=== PATIENT | male | born 1985 ===

== ENCOUNTER 2017-04-02 21:12 | Emergency (ER) | payer SELFPAY | END 2017-04-02 22:30 | disposition left against medical advice (07) | LOC: D.ER 21:12 | DX: T30.0 Burn of unspecified body region, unspecified degree (principal) ==

== ENCOUNTER 2020-07-19 13:37 | Emergency (ER) | payer SELFPAY ==
[~2020-07-19] VITALS: Ht 182.9 cm; Wt 90.9 kg
[2020-07-19 13:47] VITALS: BP 148/82; Ht 182.9 cm; Wt 90.9 kg
[2020-07-19 15:32] LABS: BILIRUBIN NEGATIVE (NEGATIVE); KETONE NEGATIVE (NEGATIVE); NITRITE NEGATIVE (NEGATIVE); UROBILINOGEN NORMAL mg/dL (< 2)
[2020-07-19 15:51] LABS: UDS - AMPHET NEGATIVE QUAL (NEGATIVE); UDS - BARB NEGATIVE QUAL (NEGATIVE); UDS - BENZO NEGATIVE QUAL (NEGATIVE); UDS - COCAINE NEGATIVE QUAL (NEGATIVE); UDS - OPIATE POSITIVE QUAL (NEGATIVE); UDS - PCP NEGATIVE QUAL (NEGATIVE); UDS - THC NEGATIVE QUAL (NEGATIVE)
[2020-07-19 16:02] LABS: BASOPHILS 0.3 % (0-2); EOSINOPHILS 0.7 % (0-7); HEMOGLOBIN 13.8 g/dL (13.5-17.5); IMMATURE GRANULOCYTES 0.2 % (0-5); LYMPHOCYTES 25.9 % (15-50); MCH 30.3 pg (26.0-34.0); MCHC 34.5 g/dL (31.0-37.0); MCV 87.7 fL (80.0-100.0); MEAN PLATELET VOLUME 9.8 fL (7.4-10.4); MONOCYTES 7.4 % (2-11); NEUTROPHILS 65.5 % (40-80); PLATELET COUNT 292 10x3/uL (130-400); RBC 4.56 10x6/uL (4.20-6.10); RDW 12.1 % (11.5-14.5); WBC 9.6 10x3/uL (4.8-10.8)
[2020-07-19 16:16] LABS: CALC OSMOLALITY 271 mosm/kg (275-300); CARBON DIOXIDE 26.7 mmol/L (21.0-32.0); CHLORIDE - SERUM 103 mmol/L (98-107); CREATININE - SERUM 0.8 mg/dL (0.6-1.3); GLUCOSE 99 mg/dL (74-106); POTASSIUM - SERUM 3.6 mmol/L (3.5-5.1); SODIUM 137 mmol/L (136-145); UREA NITROGEN 7 mg/dL (7-18); eGFR NON AFRICAN AMERICAN > 90 mL/min (90-120)
[2020-07-19 16:32] LABS: ALBUMIN 4.4 g/dL (3.4-5.0); ALKALINE PHOSPHATASE 64 U/L (30-120); ALT (SGPT) 18 U/L (10-68); AMYLASE - SERUM 47 U/L (25-115); BILIRUBIN - TOTAL 0.32 mg/dL (0.2-1.3); PROTEIN - SERUM 7.8 g/dL (6.4-8.2)
[2020-07-19 16:33] LABS: LIPASE 47 U/L (73-393)
[2020-07-19] MEDS ORDERED: AUGMENTIN 875-11 TAB PO (18:04)
== END 2020-07-19 19:28 | disposition home or self-care (01) ==
LOC: D.ER 13:37
PROVIDERS: Family Medicine
DX: J06.9 Acute upper respiratory infection, unspecified (principal); F15.10 Other stimulant abuse, uncomplicated; F11.20 Opioid dependence, uncomplicated; Z72.0 Tobacco use; R10.10 Upper abdominal pain, unspecified